=== PATIENT | male | born 1940 | race Two or more races ===

== ENCOUNTER 2018-09-07 11:47 | Outpatient (CLI) | payer OTHER | END 2018-09-07 16:52 | disposition home or self-care (01) | LOC: RAD 501 11:47 | DX: M17.12 Unilateral primary osteoarthritis, left knee (principal); M16.0 Bilateral primary osteoarthritis of hip ==

== ENCOUNTER 2023-05-08 12:06 | Emergency (ER) | payer OTHER ==
[~2023-05-08] VITALS: Ht 170.2 cm; Wt 90.7 kg
[2023-05-08] MEDS ORDERED: GABAPENTIN800 M1 PO (12:37)
[2023-05-08] MEDS ORDERED: MUPIROCIN22 GM (12:37)
[2023-05-08] MEDS ORDERED: METFORMIN HCL500 M4 PO (12:37)
== END 2023-05-08 12:43 | disposition home or self-care (01) ==
LOC: ER 12:06
DX: L60.0 Ingrowing nail (principal)